=== PATIENT | female | born 1940 | race Caucasian/White ===

== ENCOUNTER → 2016-05-13 | Outpatient (CLI) | payer OTHER ==
--- NOTE | 2016-05-14 13:36 | MAMMOGRAPHY REPORT ---
BILATERAL DIGITAL SCREENING MAMMOGRAM TOMOSYNTHESIS WITH CAD: 05/13/2016 CLINICAL HISTORY: Asymptomatic. Personal history of right breast cancer status post treatment. TECHNIQUE: Breast tomosynthesis in addition to standard 2D mammography was performed. Current study was also evaluated with a Computer Aided Detection (CAD) system. COMPARISON: Comparison is made to exams dated: 05/11/2015 mammogram, 03/04/2013 mammogram, 05/09/2014 mammogram, 03/03/2012 mammogram, 01/22/2011 mammogram, and 11/08/2009 mammogram - [facility]. BREAST COMPOSITION: There are scattered areas of fibroglandular density in both breasts. FINDINGS: There is asymmetry of the size of the breasts, left greater than right, likely to previous treatment of the right breast. The surgical site in the lateral far posterior right breast is not well visualized mammographically due to the far posterior location. There is an increasingly prominent 12 mm asymmetry in the superior far posterior left breast, only s een on the MLO view. Although this could be positional, additional spot compression tomosynthesis, exaggerated lateral cc views and possibly ultrasound are recommended. No other suspicious mass, architectural distortion or cluster of microcalcifications is seen bilater ally. IMPRESSION: ACR BI-RADS CATEGORY 0: INCOMPLETE EVALUATION: NEED ADDITIONAL IMAGING EVALUATION The increasingly prominent 12 mm asymmetry in the left superior breast needs additional evaluation. The patient will be called to schedule an appointment. Approximately 10% of breast cancers are not detected with mammography. A negative mammographic repor t should not delay biopsy if a clinically suggestive mass is present. Estefany Chappell M.D. ay/:05/13/2016 16:38:59 [employer] Operator: Chyna PÉREZ([place])(Ct), [facility] letter sent: Addl Imaging 0 BI-RADS Code: ACR BI-RADS Category 0: Incomplete Evaluation: Need Additional Imaging Evaluation
== END | disposition home or self-care (01) ==
LOC: C.MAMM 09:39
PROVIDERS: ATTEND Internal Medicine
DX: Z12.31 Encounter for screening mammogram for malignant neoplasm of breast (principal); N64.89 Other specified disorders of breast

== ENCOUNTER → 2016-05-24 | Outpatient (CLI) | payer OTHER ==
--- NOTE | 2016-05-24 13:04 | MAMMOGRAPHY REPORT ---
UNILATERAL LEFT DIGITAL DIAGNOSTIC MAMMOGRAM TOMOSYNTHESIS AND TARGETED LEFT ULTRASOUND: 05/24/2016 CLINICAL HISTORY: Callback from screening mammogram for left breast asymmetry. TECHNIQUE: Breast tomosynthesis in addition to standard 2D mammography was performed. Spot alesha jaycee left MLO 2-D and tomosynthesis images and left X CCL views were obtained. COMPARISON: Comparison is made to exams dated: 05/13/2016 mammogram, 05/11/2015 mammogram, 05/09/2014 mammogram, 03/04/2013 mammogram, 03/03/2012 mammogram, and 01/22/2011 mammogram - [facility]. BREAST COMPOSITION: There are scattered areas of fibroglandular density in the left breast. FINDINGS: The previously described asymmetry seen within the left superior posterior breast on the MLO view is less prominent on the spot compression view, and appears similar to the 2016 exam on the spot compression view. An asymmetry has been present in this region on all available prior mammogr ams including the 2008 and 2007 exams, with the increased conspicuity possibly related to technical differences between the current and prior exams. A correlate is seen on the cc view laterally, whic h has the appearance of normal fibroglandular tissue and appears similar to prior exams dating back to 2008 on the cc view. On the tomosynthesis images the asymmetry has the appearance of normal fibr oglandular tissue without a discrete mass or suspicious architectural distortion seen. Targeted ultrasound was performed of the left upper outer quadrant in the region of the mammographic asymmetry. Sonographically normal tissue is seen, without evidence of a mass or other suspicious s onographic abnormality. IMPRESSION: ACR-BI-RADS CATEGORY 3: PROBABLY BENIGN, TARGETED ULTRASOUND ACR-BI-RADS CATEGORY 3: MS OBABLY BENIGN The left breast asymmetry appears more similar to prior exams on the additional views, without corre sponding sonographic abnormality evident. The asymmetry is probably benign and likely represents no rmal fibroglandular tissue. Recommend follow-up diagnostic tomosynthesis mammograms and possible ul trasound of the left breast in 6 months to confirm stability. The patient has been verbally notified of the results. Approximately 10% of breast cancers are not detected with mammography. A negative mammographic repor t should not delay biopsy if a clinically suggestive mass is present. Winnie Sosa M.D. ah/:05/24/2016 08:46:32 Senior Drafter: Chyna Patel RT(R)(M), [facility] letter sent: Follow Up Recommended 3 BI-RADS Code: ACR-BI-RADS Category 3: Probably Benign Ultrasound BI-RADS: ACR-BI-RADS Category 3: P robably Benign
== END | disposition home or self-care (01) ==
LOC: C.MAMM 08:14
PROVIDERS: ATTEND Internal Medicine
DX: N64.89 Other specified disorders of breast (principal)

== ENCOUNTER → 2016-11-25 | Outpatient (CLI) | payer OTHER ==
--- NOTE | 2016-11-25 14:16 | MAMMOGRAPHY REPORT ---
UNILATERAL LEFT DIGITAL DIAGNOSTIC MAMMOGRAM TOMOSYNTHESIS WITH CAD AND TARGETED LEFT ULTRASOUND: 11/25/2016 CLINICAL HISTORY: 76-year-old woman presents for follow-up in the left breast for a superior asymmetr y. TECHNIQUE: Left breast tomosynthesis in addition to standard 2D mammography was performed. Current st udy was also evaluated with a Computer Aided Detection (CAD) system. COMPARISON: Comparison is made to exams dated: 05/24/2016 mammogram, 05/24/2016 ultrasound, 05/13/2016 ma mmogram, 05/11/2015 mammogram, 05/09/2014 mammogram, and 03/04/2013 mammogram - [facility]. BREAST COMPOSITION: There are scattered areas of fibroglandular density in the left breast. FINDINGS: There is a 12 mm asymmetry in the superior posterior left breast, best seen on the 2-D MLO view, but thought to project laterally based on the CC view. There is no discrete, measurable mass o n the corresponding tomosynthesis images, and this area of asymmetry has the appearance of normal fib roglandular tissue. This asymmetry is slightly more prominent comparing to the 2013 and 2012 mammogr ams, but has been present dating back to at least 2004. No associated architectural distortion or ca lcification. There is a stable asymmetry in the lower outer anterior left breast, which is unchanged on all available prior mammograms dating back to at least 2007. Targeted ultrasound was performed in the superior left breast with particular attention to the upper outer quadrant. Sonographically normal tissue is seen without a suspicious solid or cystic mass. In cidental note is made of a morphologically normal lymph node in the 2:30 far lateral left breast near the midaxillary line. IMPRESSION: ACR-BI-RADS CATEGORY 3: PROBABLY BENIGN, TARGETED ULTRASOUND ACR-BI-RADS CATEGORY 3: PRO BABLY BENIGN There is a persistent 12 mm asymmetry in the superior posterior left breast, best seen on the MLO vie w, which has been present dating back to 2004 and is slightly more prominent, although unchanged comp aring to the most recent diagnostic mammogram. This most likely represents benign fibroglandular tis anibal, and the increased prominence may be due to positioning and/or technique. However, another short interval follow-up left diagnostic tomosynthesis mammogram and possible ultrasound is recommended to ensure stability in 6 months. Annual right mammography will also be due at that time. These results and recommendations were discussed with the patient at the time of the exam. Approximately 10% of breast cancers are not detected with mammography. A negative mammographic report should not delay biopsy if a clinically suggestive mass is present. Estefany Chappell M.D. ay/:11/25/2016 09:06:06 Call Out Operator: Renee PÉREZ([place])(Ct), [facility] letter sent: Follow Up Recommended 3 BI-RADS Code: ACR-BI-RADS Category 3: Probably Benign Ultrasound BI-RADS: ACR-BI-RADS Category 3: Pr obably Benign
== END | disposition home or self-care (01) ==
LOC: C.MAMM 08:26
PROVIDERS: ATTEND Internal Medicine
DX: Z85.3 Personal history of malignant neoplasm of breast (principal); Z08 Encounter for follow-up examination after completed treatment for malignant neoplasm; R92.8 Other abnormal and inconclusive findings on diagnostic imaging of breast